=== PATIENT | male | born 1960 | race Caucasian/White ===

== ENCOUNTER 2024-03-23 15:24 | Emergency (ER) | payer MEDICAID, OTHER ==
[2024-03-23 15:39] VITALS: BP 160/90; PULSE 95
== END 2024-03-23 17:49 | disposition home or self-care (01) ==
LOC: JP.ED 15:24
DX: H60.91 Unspecified otitis externa, right ear (principal); Z79.899 Other long term (current) drug therapy
CPT/HCPCS: 99282-25; 99283